=== PATIENT | male | born 1960 | race Caucasian/White ===

== ENCOUNTER 2016-07-13 05:35 | Emergency (ER) | payer MEDICARE ==
--- NOTE | ~2016-07-13 | CT4 ---
[facility] A Service of [facility] & [facility] RADIOLOGY TEXT RESULTS PATIENT: KENZIE BEE LOCATION: SED : 56 UNIT #: [id number] AGE: [address]: Everette Parikh MD SEX: M ORDER DR: [id number] [address] [address] [id number] E MR#: [id number] Acc #: [id number] NAME: KENZIE BEE : 1960 SEX: M STUDY DATE/TIME: 07/13/2016 6:10 UNIT: SED ROOM: STUDY DESCRIPTION: CT Abd and Pelv Wo Cont Attending Physician: Everette Parikh M.D. Ordering Physician: Everette Parikh M.D. Primary Care Physician: Katie Good M.D. MEDICAL IMAGING REPORT This report is preliminary unless electronic signature is present. EXAM CT abdomen and pelvis without contrast. INDICATION Left flank and left lower quadrant and groin pain since yesterday evening. History of kidney stones. COMPARISON 06/07/2016. TECHNIQUE Axial 3 mm images were obtained through the abdomen and pelvis without IV or oral contrast. This CT exam was performed with one or more of the following radiation dose reduction techniques: automatic exposure control, adjustment of mA and/or kV according to patient size, and iterative reconstruction. FINDINGS Lung bases are clear. Liver, gallbladder, pancreas, and adrenal glands are normal. The spleen measures 15 cm in diameter. Right kidney is normal. Left kidney shows mild hydronephrosis and perinephric edema. There is a small exophytic 17 mm lesion projecting from the left kidney and that was shown to be a cyst on the 06/11/2014 study. The left ureter is dilated and this is caused by a distal ureteral stone at the ureterovesical juncture which measures 6.5 mm in diameter. Aorta is normal in size. There is no adenopathy. There are postoperative changes involving the stomach. There are also postoperative changes involving the small bowel. Otherwise the bowel is normal. The bladder and prostate gland are normal. The bones show lumbar spine degenerative changes. IMPRESSION 1. 6.5 mm left ureterovesical juncture stone causing mild left STS. [facility] A Service of [facility] & [facility] RADIOLOGY TEXT RESULTS PATIENT: KENZIE BEE LOCATION: SED : 56 UNIT #: [id number] AGE: [address]: Everette Parikh MD SEX: M ORDER DR: hydronephrosis. 2. Small left renal cyst, unchanged from 2015. 3. Postoperative changes involving the stomach and small bowel. 4. Splenic size is slightly prominent, but unchanged form prior study. Dictated by... Koyr Ellington M.D. THIS IS AN ELECTRONICALLY VERIFIED REPORT Kory Ellington M.D. at 07/13/2016 10:24 AM FEL/gz TD: 07/13/2016 08:54 JOB #: [id number] MEDICAL IMAGING REPORT
[~2016-07-13 05:35] MED LIST: AUGMENTIN875 M1 PO; BACTRIM DS TABL1 TA2 PO; FLEXERIL10 MG PO; FLOMAX0.4 M1 PO; HYDROCODON-ACE1 EAC5 PO; HYDROCODON-ACE1 EAC7 PO; LISINOPRIL10 MG PO; LORTAB 10-3251 EACH PO; VITAMINS A & D1 EACH PO; ZANTAC150 MG PO; ZOFRANODT SL
[2016-07-13 06:00] LABS: EOSINOPHIL# 0.2 X10e3 (0.0-0.7); EOSINOPHIL% 4.6 % (0.0-7.0); HEMATOCRIT 40.3 % (38.0-50.0); HEMOGLOBIN 14.3 gm/dl (13.0-17.0); LYMPHOCYTE# 1.8 X10e3 (1.0-3.5); LYMPHOCYTE% 41.4 % (17.0-45.0); MEAN CELL VOLUME 88.7 FL (83-96); MEAN CORPUSCULAR HEMOGLOBIN 31.4 PG (28-34); MEAN CORPUSCULAR HGB CONC 35.4 g/dL (30-36); MEAN PLATELET VOLUME 8.2 FL (6.5-11.5); MONOCYTE# 0.4 X10e3 (0.0-1.0); MONOCYTE% 10.5 % (3.0-12.0); NEUTROPHIL# 1.7 X10e3 (1.5-7.1); NEUTROPHIL% 42.5 % (40.0-75.0); PLATELET COUNT 141 X10e3 (140-420); RED BLOOD COUNT 4.54 X10e6 (3.90-5.60); RED CELL DISTRIBUTION WIDTH 12.4 % (11.0-15.5); WHITE BLOOD COUNT 4.1 X10e3 (4.0-10.5)
[2016-07-13 06:01] LABS: DIFF IND NO
[2016-07-13 06:03] LABS: URINE SOURCE CLEAN CATCH
[2016-07-13 06:05] LABS: URINE APPEARANCE CLEAR; URINE BLOOD 3+ (NEG); URINE COLOR YELLOW; URINE GLUCOSE NEG (NORM); URINE KETONE NEG (NEG); URINE LEUKOCYTE ESTERASE NEG (NEG); URINE NITRATE NEG (NEG); URINE PH 5.5 (5-8); URINE PROTEIN NEG (NEG); URINE SPECIFIC GRAVITY >=1.030 (1.003-1.035)
[2016-07-13 06:08] LABS: MICRO INDICATED? YES; URINE BILIRUBIN NEG (NEG)
[2016-07-13 06:12] LABS: CULTURE INDICATED? NO; URINE BACTERIA NEG (NEG); URINE CRYSTALS CALCIUM OXALATE /[HPF]; URINE MUCUS PRESENT; URINE RBC 100-200 /[HPF] (0-2); URINE SQUAMOUS EPITHELIAL CELL OCCAS /[HPF]
[2016-07-13 06:14] LABS: BLOOD UREA NITROGEN 20 mg/dL (9-23); BUN/CREATININE RATIO 22.22; CALCIUM SERUM 9.1 mg/dL (8.4-10.2); CARBON DIOXIDE 27 mmol/L (22-31); CHLORIDE 106 mmol/L (100-111); CREATININE SERUM 0.9 mg/dL (0.6-1.4); GLOM FILT RATE Estimated ABOVE60 mL/min (>60); GLUCOSE FASTING 96 mg/dL (70-110); POTASSIUM 3.8 mmol/L (3.5-5.1); SODIUM 137 mmol/L (135-145)
[2016-07-13] MEDS ORDERED: FLOMAX0.4 M1 PO (06:39)
[2016-07-13] MEDS ORDERED: LORTAB 5-325 M1 EACH PO (06:40)
[2016-07-13] MEDS ORDERED: ZOFRAN ODT4 MG PO (06:40)
== END 2016-07-13 06:46 | disposition home or self-care (01) ==
LOC: SED 05:35
PROVIDERS: Emergency Medicine
DX: N23 Unspecified renal colic (principal); Z87.442 Personal history of urinary calculi; K21.9 Gastro-esophageal reflux disease without esophagitis; Z79.899 Other long term (current) drug therapy
CPT/HCPCS: 36415; 74176; 80048; 81003; 85025; 96361; 96374; 99284; J1885

== ENCOUNTER 2016-11-13 13:28 | Emergency (ER) | payer MEDICARE ==
--- NOTE | ~2016-11-13 | CR106 ---
[facility] A Service of [facility] & [facility] RADIOLOGY TEXT RESULTS PATIENT: KENZIE BEE LOCATION: SED : 56 UNIT #: [id number] AGE: [address]: NOAM PAREDES SEX: M ORDER DR: [id number] [address] [address] [id number] E MR#: [id number] Acc #: [id number] NAME: KENZIE BEE : 1960 SEX: M STUDY DATE/TIME: 11/13/2016 14:39 UNIT: SED ROOM: STUDY DESCRIPTION: CR Femur 2 Views Lt Ordering Physician: [facility] [employer] Primary Care Physician: Katie Good M.D. MEDICAL IMAGING REPORT This report is preliminary unless electronic signature is present. EXAM Left femur INDICATIONS Left thigh pain for 1 week. No known injury. FINDINGS No acute fracture or subluxation of the left femur is identified. Patient does have degenerative changes involving the left knee with some additional milder changes noted involving the left hip. No aggressive osseous abnormalities are identified. There are no focal soft tissue abnormalities. IMPRESSION No acute disease. Dictated by... Jenni Danielle M.D. THIS IS AN ELECTRONICALLY VERIFIED REPORT Jenni Danielle M.D. at 11/15/2016 5:15 PM AFF/pcl TD: 11/13/2016 21:42 JOB #: [id number] MEDICAL IMAGING REPORT Page 1 of 1
--- NOTE | ~2016-11-13 | US85 ---
[facility] A Service of [facility] RADIOLOGY TEXT RESULTS PATIENT: KENZIE BEE LOCATION: SED : 56 UNIT #: [id number] AGE: [address]: NOAM PAREDES SEX: M ORDER DR: [id number] [address] [address] [id number] E MR#: [id number] Acc #: [id number] NAME: KENZIE BEE : 1960 SEX: M STUDY DATE/TIME: 11/13/2016 14:17 UNIT: SED ROOM: STUDY DESCRIPTION: LE [employer] Stdy Ordering Physician: [facility] [employer] Primary Care Physician: Katie Good M.D. MEDICAL IMAGING REPORT This report is preliminary unless electronic signature is present. EXAM Left lower extremity venous duplex 11/13/2016 HISTORY Left lower extremity pain for 2 days. Evaluate for deep vein thrombosis. TECHNIQUE Venous ultrasound examination of the left lower extremity was performed using grayscale, spectral Doppler and color flow Doppler imaging. FINDINGS The examination is negative. There is no evidence of left lower extremity deep venous thrombus from the groin to the lower calf. Visualized greater saphenous vein is also patent. IMPRESSION Negative examination. No evidence of left lower extremity deep venous thrombosis. Dictated by... Jose Porter M.D. THIS IS AN ELECTRONICALLY VERIFIED REPORT Jose Porter M.D. at 11/14/2016 8:20 AM KRT/pcl TD: 11/13/2016 21:03 JOB #: [id number] MEDICAL IMAGING REPORT [facility] A Service of [facility] RADIOLOGY TEXT RESULTS PATIENT: KENZIE BEE LOCATION: SED : 56 UNIT #: [id number] AGE: [address]: NOAM PAREDES SEX: M ORDER DR: Page 1 of 1
[~2016-11-13 13:28] MED LIST changes: +LORTAB 5-325 M1 EACH PO; +ZOFRAN ODT4 MG PO
== END 2016-11-13 15:40 | disposition home or self-care (01) ==
LOC: SED 13:28
DX: M79.652 Pain in left thigh (principal); R03.0 Elevated blood-pressure reading, without diagnosis of hypertension; K21.9 Gastro-esophageal reflux disease without esophagitis; Z87.442 Personal history of urinary calculi; Z98.84 Bariatric surgery status
CPT/HCPCS: 73552; 93971; 99284

== ENCOUNTER 2016-12-18 23:58 | Emergency (ER) | payer MEDICARE ==
[~2016-12-18] VITALS: Ht 190.5 cm; Wt 158.8 kg
--- NOTE | ~2016-12-18 | CT4 ---
[facility] A Service of [facility] RADIOLOGY TEXT RESULTS PATIENT: KENZIE BEE LOCATION: SED : 56 UNIT #: [id number] AGE: [address]: Kash Ash MD SEX: M ORDER DR: [id number] [place] [id number] E MR#: [id number] Acc #: [id number] NAME: KENZIE BEE : 1960 SEX: M STUDY DATE/TIME: 12/19/2016 1:36 UNIT: SED ROOM: STUDY DESCRIPTION: CT Abd and Pelv Wo Cont Attending Physician: Kash Ash M.D. Ordering Physician: Kash Ash M.D. Primary Care Physician: Katie Good M.D. MEDICAL IMAGING REPORT This report is preliminary unless electronic signature is present. EXAM CT abdomen and pelvis without contrast, 12/19/2016 HISTORY Left flank pain for 2 days. History of kidney stones. Previous appendectomy, gastric bypass. COMPARISON CT abdomen and pelvis without contrast 07/13/2006 PROCEDURE 3 mm axial images from lung bases to the lesser trochanters without intravenous or enteric contrast. Sagittal and coronal reformatted mages were obtained. This CT exam was performed with one or more of the following radiation dose reduction techniques: automatic exposure control, adjustment of mA and/or kV according to patient size, and iterative reconstruction. ABDOMEN FINDINGS: 8 mm stone is seen with the urinary bladder just past the ureterovesical junction. There is moderate left hydronephrosis and hydroureter with perinephric inflammatory stranding. Findings suggest recently passed left side ureteral stone. No right to left intrarenal calculi are identified. Lung bases are free of consolidation. Surgical changes of gastric bypass. The liver, gallbladder, spleen, pancreas, adrenals are normal. No active bowel inflammatory changes are identified. Tiny umbilical hernia contains only fat. PELVIS FINDINGS: Prostate and rectum are normal. No pelvic free fluid. Not mentioned above, 1.4 cm left renal cyst is unchanged. [facility] A Service of [facility] RADIOLOGY TEXT RESULTS PATIENT: KENZIE BEE LOCATION: SED : 56 UNIT #: [id number] AGE: [address]: Kash Ash MD SEX: M ORDER DR: IMPRESSION 1. An 8 mm stone in the urinary bladder lies just past the left ureterovesical junction, and there is moderate left hydronephrosis and hydroureter. Findings suggest recently passed left side ureteral stone. 2. Stable left renal cyst. 3. Gastric bypass changes. Dictated by... Imani Weir M.D. THIS IS AN ELECTRONICALLY VERIFIED REPORT Imani Weir M.D. at 12/19/2016 9:56 PM LEESA/donnie TD: 12/19/2016 04:54 JOB #: [id number] MEDICAL IMAGING REPORT Page 1 of 1
[2016-12-19] MEDS ORDERED: NO MEDICATIONS (00:09)
[2016-12-19 00:54] LABS: URINE SOURCE CLEAN CATCH
[2016-12-19 00:56] LABS: URINE APPEARANCE CLEAR; URINE BILIRUBIN NEG (NEG); URINE BLOOD 3+ (NEG); URINE COLOR YELLOW; URINE GLUCOSE NEG (NORM); URINE KETONE TRACE (NEG); URINE LEUKOCYTE ESTERASE NEG (NEG); URINE NITRATE NEG (NEG); URINE PH 5.5 (5-8); URINE PROTEIN TRACE (NEG); URINE SPECIFIC GRAVITY 1.025 (1.003-1.035)
[2016-12-19 00:58] LABS: BASOPHIL% 0.6 % (0-2.5); DIFF IND NO; EOSINOPHIL# 0.1 X10e3 (0-0.7); EOSINOPHIL% 2.2 % (0.0-7.0); HEMATOCRIT 39.5 % (38.0-50.0); HEMOGLOBIN 13.5 gm/dL (13.0-16.0); LYMPHOCYTE# 1.6 X10e3 (1.0-3.5); LYMPHOCYTE% 24.6 % (17.0-45.0); MEAN PLATELET VOLUME 8.6 FL (6.5-11.5); MONOCYTE# 0.6 X10e3 (0-1.0); MONOCYTE% 8.7 % (3.0-12.0); NEUTROPHIL# 4.1 X10e3 (1.5-7.1); NEUTROPHIL% 63.9 % (40-75); PLATELET COUNT 147 X10e3 (140-420); RED BLOOD COUNT 4.34 X10e (3.90-5.60); RED CELL DISTRIBUTION WIDTH 13.5 % (11.0-15.5); WHITE BLOOD COUNT 6.4 X10e3 (4.0-10.5)
[2016-12-19 00:58] LABS: MICRO INDICATED? YES
[2016-12-19 01:00] LABS: CULTURE INDICATED? NO; URINE BACTERIA NEG (NEG); URINE MUCUS PRESENT; URINE RBC 50-100 /[HPF] (0-2); URINE SQUAMOUS EPITHELIAL CELL FEW /[HPF]; URINE WBC 0-2 /[HPF] (0-5)
[2016-12-19 01:12] LABS: ALBUMIN SERUM 4.2 g/dL (3.5-5.0); BILIRUBIN,TOTAL 0.8 mg/dL (0.2-2.0); CALCIUM SERUM 8.7 mg/dL (8.4-10.2); CREATININE SERUM 1.2 mg/dL (0.6-1.4); GLOM FILT RATE Estimated 66.3 mL/min (>60); POTASSIUM 4.2 mmol/L (3.5-5.1); PROTEIN TOTAL SERUM 7.7 g/dL (6.0-8.3)
== END 2016-12-19 02:26 | disposition home or self-care (01) ==
LOC: SED 23:58
PROVIDERS: Nurse Practitioner
DX: N13.2 Hydronephrosis with renal and ureteral calculous obstruction (principal)
CPT/HCPCS: 36415; 74176; 80053; 81003; 85025; 99284